=== PATIENT | female | born 1990 | race Native Hawaiian/Other Pacific Islander ===

== ENCOUNTER 2016-12-03 07:13 | Day surgery (SDC) | payer OTHER ==
[2016-12-03] MEDS ORDERED: Lactated Ringer's 500 ML IV ONE (08:11)
[2016-12-03] MEDS ORDERED: Propofol 10 mg/ml Inj (20 ML) ONE (09:21)
[2016-12-03 10:05] VITALS: TEMP 97.2
[2016-12-03 10:27] VITALS: BP 114/62; PULSE 59; RESP 18; O2SAT 100
== END 2016-12-03 11:01 | disposition home or self-care (01) ==
LOC: H.ENDO 07:13
PROVIDERS: ATTEND Internal Medicine Gastroenterology
DX: K62.5 Hemorrhage of anus and rectum (principal); K64.1 Second degree hemorrhoids; K62.89 Other specified diseases of anus and rectum; R12 Heartburn; K31.9 Disease of stomach and duodenum, unspecified; K25.9 Gastric ulcer, unspecified as acute or chronic, without hemorrhage or perforation; K44.9 Diaphragmatic hernia without obstruction or gangrene